=== PATIENT | male | born 1970 | race Caucasian/White ===

== ENCOUNTER 2018-02-03 07:30 | Inpatient (IN) | payer BC, OTHER ==
[2018-02-03 11:36] VITALS: RESP 18
[2018-02-03] MEDS ORDERED: LIDOCAINE 2% INJ 20 MG/ML SQ ONE (12:56)
[2018-02-03] MEDS: VERAPAMIL SYRINGE (5 MG/10 ML) IVP ONE ×2 (12:57→13:12)
[2018-02-03] MEDS ORDERED: SODIUM CHLORIDE 0.9% 1,000 ML IV ONE (13:00)
[2018-02-03] MEDS ORDERED: fentaNYL (PF) 50 MCG/ML 2 ML AMP IVP ONE (13:00)
[2018-02-03] MEDS ORDERED: MIDAZOLAM 2 MG/2 ML VIAL IVP ONE (13:00)
[2018-02-03] MEDS ORDERED: IOPAMIDOL-370 50ML BTL INJ ONE (13:11)
[2018-02-03] MEDS ORDERED: IOPAMIDOL-370 125ML BTL INJ ONE (13:11)
[2018-02-03] MEDS ORDERED: RX INFO: IV CONTRAST WAS GIVEN 1 EACH MISC MISCELLANE PRN (13:21)
[2018-02-03] MEDS ORDERED: SODIUM CHLORIDE 0.9% 1,000 ML IV SCH (13:30)
--- NOTE | 2018-02-03 14:55 | P.HPIM ---
History of Present Illness H&P Date: 02/03/18 Chief Complaint: TROPONEMIA This is a 47 years old male with no significant past medical history of tobacco abuse. Patient of Dr. Vasquez presents to the hospital on to [facility] with generalized weakness and nausea patient will fishing in the bone. Had pain and numbness both arm from elbow to his and associated with nausea and emesis that lasted for 2 hours. Initial troponin was negative with the increase in troponin to 4 this morning. Chest X ray was negative. Initial EKG suggested sinus rhythm with minimal ST depression in lead 2 [address] elevation in lead V1. Patient denied any chest pain or dyspnea. Patient was heparinized overnight given a dose of aspirin 325 mg Was transferred to [facility] for cardiac catheterization which did not show any sinopulmonary artery disease. Review of Systems Constitutional: Denies chills, Denies fever, Denies lethargy, Denies malaise, Denies poor appetite, Denies weakness, Denies weight loss Eyes: denies decreased vision, denies diplopia, denies discharge, denies pain Ears: deny: decreased hearing Ears, nose, mouth and throat: Denies dental pain, Denies headache, Denies nasal discharge, Denies nose pain Cardiovascular: Denies chest pain, Denies decreased exercise tolerance, Denies edema, Denies high blood pressure, Denies irregular heart beat, Denies palpitations, Denies paroxysmal nocturnal dyspnea, Denies rapid heart beat, Denies shortness of breath Respiratory: Denies congestion, Denies cough, Denies cough with sputum, Denies dyspnea, Denies home oxygen, Denies wheezing, endorses recent cold and cough 2 weeks ago Gastrointestinal: Denies abdominal pain, Denies change in bowel habits, Denies coffee ground emesis, Denies early satiety, Denies excessive gas, Denies heartburn, Denies hematemesis, Denies hematochezia, Denies loss of appetite, Denies nausea, Denies vomiting Genitourinary: Denies dysuria, Denies flank pain, Denies kidney stones, Denies menorrhagia, Denies urgency, Denies urinary frequency Musculoskeletal: Denies gait dysfunction, Denies limitation of motion, Denies morning stiffness, Denies muscle cramps Integumentary: Denies rash, Denies wounds, Denies brittle nails, Denies change in hair/nails, Denies darkening of skin Neurological: Denies balance difficulties, Denies change in speech, Denies double vision, Denies gait dysfunction, Denies loss of vision, Denies motor disturbance, endorses numbness in both arms, right arm resolved persistent left arm numbness, Denies paralysis, Denies paresthesias, Denies seizures Psychiatric: Denies anxiety, Denies depression Endocrine: Denies excessive sweating, Denies excessive thirst, Denies high blood sugars, Denies palpitations Hematologic/Lymphatic: Denies easy bruising, Denies lymphadenopathy Medications and Allergies Allergies Allergy/AdvReac Type Severity Reaction Status Date / Time No Known Allergies Allergy Verified 02/03/18 11:08 Physical Exam Vitals: Vital Signs Temp Pulse Resp BP Pulse Ox 02/03/18 14:15 63 18 113/68 97 02/03/18 14:00 64 18 110/64 97 02/03/18 13:45 62 18 109/74 97 02/03/18 13:30 64 18 105/74 97 02/03/18 13:15 98.2 F 64 18 107/72 97 02/03/18 11:35 98.0 F 56 L 18 115/79 97 Intake and Output 02/02/18 02/03/18 02/03/18 22:59 06:59 14:59 Intake Total 200 Balance 200 Intake: IV 200 Other: Weight 90.718 kg - Constitutional General appearance: cooperative, no acute distress, obese - EENT Eyes: anicteric sclerae, PERRLA, normal appearance ENT: hearing grossly normal - Neck Neck: no lymphadenopathy, normal ROM, no other, no rigidity, no stridor, no thyromegaly - Respiratory Respiratory: bilateral: CTA, negative: diminished, dullness, rales, rhonchi - Cardiovascular Rhythm: regular Heart sounds: normal: S1, S2 Abnormal Heart Sounds: no systolic murmur, no diastolic murmur, no rub, no S3 Gallop, no S4 Gallop, no click, no other - Gastrointestinal General gastrointestinal: normal bowel sounds, soft - Integumentary Integumentary: no rash - Neurologic Neurologic: CNII-XII intact - Musculoskeletal Musculoskeletal: strength equal bilaterally, site of catheterization appears normal, normal dictaphone transcriber bilaterally - Psychiatric Psychiatric: A&O x's 3, appropriate affect Thrombosis Risk Factor Assmnt - DVT/VTE Prophylaxis DVT/VTE Prophylaxis: Mechanical Prophylaxis ordered Assessment and Plan Plan: #1 . Troponinemia likely secondary to Non-ST elevation myocardial infarction. Cardiac cath done on 02/03 suggestive of no major coronary artery disease. There was a concern of some occlusion in the septal branch of OM1 which might be responsible for patient's symptoms. Ventriculogram suggestive of EF 40-45%. Patient initiated on aspirin 325 mg, atorvastatin 40 mg, lisinopril 2.5 mg, metoprolol 25 mg twice a day. Vitals per floor. Continue telemetry overnight. We will also get a VQ scan to rule out pulmonary embolism as patient's EKG finding and increase troponinemia could be related to pulmonary embolism #2 nicotine dependence. NicoDerm patch ordered. Patient requests a prescription on discharge. Continue albuterol as needed. Oxygen as needed #3 leukocytosis likely secondary to stress. Chest x-ray was clear #4 GI prophylaxis with Pepcid 20 mg daily #5 DVT prophylaxis with heparin every 8 CODE STATUS full code
[2018-02-03] MEDS ORDERED: ONDANSETRON 4 MG/2 ML VIAL IVP PRN (14:57)
[2018-02-03] MEDS ORDERED: IPRATROPIUM-ALBUTEROL 3 ML NEB INHALATION PRN (14:57)
[2018-02-03] MEDS ORDERED: MORPHINE SULFATE 4 MG/ML SYRINGE IVP PRN (14:57)
[2018-02-03] MEDS ORDERED: ACETAMINOPHEN TAB 325 MG TAB PO PRN (14:57)
--- NOTE | 2018-02-03 16:15 | CC ---
CARDIAC CATHETERIZATION REPORT DATE OF SERVICE: February 03, 2018 PERFORMING PHYSICIAN: Ruel Clay MD, photoengraving finisher. PROCEDURE PERFORMED: 1. Selective right and left coronary angiogram. 2. Left heart catheterization. 3. Left ventriculography. INDICATION: This is a very pleasant 47-year-old gentleman with significant history of smoking, who presented to the emergency room at [facility] complaining of weakness associated with sweating and bilateral arm discomfort. He was brought in for acute non ST elevation myocardial infarction. The cardiac enzymes came in to be abnormal with troponin of about 3. The EKG showed sinus rhythm with mild ST-segment elevation in the septal leads only. In view of that, heart catheterization was recommended. APPROACH: Right radial artery. COMPLICATION: None. LEVEL OF SEDATION: Moderate with sedation length of 18 minutes. PROCEDURE DESCRIPTION: After obtaining an informed consent, the patient was brought to the cardiac laborer/key man. The right radial artery was cannulated using micropuncture technique and a micropuncture wire passed easily. Then I placed a 6-Portuguese sheath in the right radial artery and I gave the patient 2 mg of verapamil IA and 10,000 units of heparin IV. Selective right and left coronary angiogram was performed using JR4 and JL3.5 catheters. Left heart catheterization and left ventriculography was performed using pigtail catheter. The procedure was completed without any complication. SELECTIVE CORONARY ANGIOGRAM: 1. The RCA is a large caliber vessel and it is a dominant vessel. It is angiographically normal. It bifurcates distally into PDA and PLV branches both are angiographically normal. 2. The left main is normal. It bifurcates into the left circumflex and left anterior descending artery. 3. The left circumflex is a large caliber vessel and it is a nondominant vessel. The left circumflex system is angiographically normal. 4. The LAD is angiographically normal. It gives rise into multiple diagonal branches. They are angiographically normal. The LAD also gives rise into a medium size septal science liaison branch which has a tight lesion in its ostium. HEMODYNAMICS: The left ventricular end-diastolic pressure was about 20 mmHg and no gradient was identified across the aortic valve. Left ventriculography was performed in the RAY projection and using a power injection. The left ventricular systolic function is mildly impaired with EF in the range of 40% 45% with global hypokinesia. CONCLUSION: 1. Normal coronary angiogram except for severe disease involving the ostial medium- sized septal science liaison branch. 2. Mildly impaired LV function with an ejection fraction between 40-45%. POSTPROCEDURE MANAGEMENT: 1. Maximize medical treatment. The patient will be started on aspirin and statin, metoprolol, lisinopril, and Aldactone. 2. Possible discharge home in the next 24-48 hours. 3. Echocardiogram as an outpatient to assess for improvement in the LV function. MMBENNETTL / IJN: [id number] /
--- NOTE | 2018-02-03 17:11 | NM ---
EXAMINATION TYPE: NM pul vent and perfuse DATE OF EXAM: 02/03/2018 COMPARISON: NONE HISTORY: Anterior chest pain TECHNIQUE: Utilizing inhalation of 30.6 mCi Tc 99m DTPA aerosol and intravenous injection of 5.17 mC i of Tc 99m MAA, ventilation and perfusion images are acquired post injection in multiple projections . FINDINGS: There are no mismatched defects identified. Apical matched small defects are seen in addition to diff use diminished for uterus or within the upper lungs throughout the entirety of the examination. No cu rrent chest radiograph is available for comparison. IMPRESSION: Exam is suboptimal and limited as there is no current chest radiograph for comparison. Comparison wit h chest radiograph is recommended to evaluate for triple matched defects in the lung apices. Decrease d ventilation within the bilateral upper lungs could relate to ventilatory etiology such as pneumonia , bullous emphysema, or poor inspiration of radiotracer. Currently the exam is low probability for pu lmonary embolus, however again radiographic correlation is suggested.
[2018-02-03] MEDS: SODIUM CHLORIDE 0.9% 1,000 ML IV SCH (18:00)
[2018-02-03] MEDS: HEPARIN SODIUM,PORCINE 5,000 UNIT/ML 1 ML VIAL SQ SCH (21:28)
[2018-02-03] MEDS: METOPROLOL TARTRATE 25 MG TAB PO SCH (21:29)
[2018-02-04] MEDS: SODIUM CHLORIDE 0.9% 1,000 ML IV SCH ×2 (02:14→08:28)
[2018-02-04 04:12] VITALS: TEMP 98.1
[2018-02-04 06:12] LABS: Basophils # (A) 0.1 k/uL (0-0.2); Basophils % (A) 1 %; Eosinophils # (A) 0.3 k/uL (0-0.7); Eosinophils % (A) 3 %; HCT 47.1 % (39.0-53.0); HGB 15.4 gm/dL (13.0-17.5); Lymphocytes # (A) 4.1 k/uL (1.0-4.8); Lymphocytes % (A) 38 %; MCH 30.3 pg (25.0-35.0); MCHC 32.8 g/dL (31.0-37.0); MCV 92.4 fL (80.0-100.0); Mean Platelet Volume 6.9; Monocytes # (A) 0.6 k/uL (0-1.0); Monocytes % (A) 6 %; Neutrophils # (A) 5.5 k/uL (1.3-7.7); Neutrophils % (A) 51 %; Platelet Count 196 k/uL (150-450); RBC 5.09 m/uL (4.30-5.90); RDW 13.2 % (11.5-15.5); WBC 10.8 k/uL (3.8-10.6)
[2018-02-04 06:23] LABS: ALT 36 U/L (21-72); AST 33 U/L (17-59); Alkaline Phosphatase 69 U/L (38-126); Anion Gap 11 mmol/L; Blood Urea Nitrogen 13 mg/dL (9-20); Calcium 9.6 mg/dL (8.4-10.2); Carbon Dioxide 25 mmol/L (22-30); Chloride 108 mmol/L (98-107); Glucose 112 mg/dL (74-99); Potassium 4.6 mmol/L (3.5-5.1); Sodium 144 mmol/L (137-145); Total Bilirubin 0.2 mg/dL (0.2-1.3); Total Protein 6.5 g/dL (6.3-8.2)
[2018-02-04] MEDS: FAMOTIDINE 20 MG TAB PO SCH ×2 (08:27→08:36)
[2018-02-04] MEDS: HEPARIN SODIUM,PORCINE 5,000 UNIT/ML 1 ML VIAL SQ SCH (08:27)
[2018-02-04] MEDS: METOPROLOL TARTRATE 25 MG TAB PO SCH (08:27)
[2018-02-04] MEDS ORDERED: NICOTINE 21MG/24HR PATCH TRANSDERM SCH (09:00)
[2018-02-04] MEDS ORDERED: ASPIRIN 325 MG TAB PO SCH (09:00)
[2018-02-04] MEDS ORDERED: LISINOPRIL 2.5 MG TAB PO SCH (09:00)
[2018-02-04] MEDS ORDERED: SPIRONOLACTONE 25 MG TAB PO SCH (09:00)
[2018-02-04] MEDS ORDERED: ATORVASTATIN 40 MG TAB PO SCH (09:00)
[2018-02-04 10:52] VITALS: BP 109/58; PULSE 53
[2018-02-04] MEDS ORDERED: MORPHINE ORAL SOLN 10 MG/5 ML CUP PO PRN (11:00)
--- NOTE | 2018-02-04 12:16 | XR ---
EXAMINATION TYPE: XR chest 1V DATE OF EXAM: 02/04/2018 COMPARISON: 05/03/2014 HISTORY: Previous heart attack, VQ scan TECHNIQUE: Single frontal view of the chest is obtained. FINDINGS: Heart is mildly prominent. No consolidation or pneumothorax. No overt failure. Hypertrophi c change of the right AC joint. No sizable pleural effusion. IMPRESSION: Mild cardiomegaly
--- NOTE | 2018-02-04 14:40 | P.DS ---
Providers Date of admission: 02/03/18 10:52 Expected date of discharge: 02/04/18 Attending physician: Yael Bynum MD Consults: 02/04/18 11:51 Consult Physician Routine Consulting Provider: Arpan Lee Consult Reason/Comments: cardiac catheterization Do you want consulting provider notified?: Already Contacted Primary care physician: Jim[facility] Course: This is a 47 years old male with no significant past medical history of tobacco abuse. Patient of Dr. Vasquez presents to the hospital on to [facility] with generalized weakness and nausea patient will fishing in the bone. Had pain and numbness both arm from elbow to his and associated with nausea and emesis that lasted for 2 hours. Initial troponin was negative with the increase in troponin to 4 this morning. Chest X ray was negative. Initial EKG suggested sinus rhythm with minimal ST depression in lead 2 and lead [address] elevation in lead V1. Patient denied any chest pain or dyspnea. Patient was heparinized overnight given a dose of aspirin 325 mg Was transferred to [facility] for cardiac catheterization showed normal coronary arteries except for severe disease involving the ostial medium sized septal gym supervisor branch. EF 40-45%. Plan to optimize medical treatment. 02/04: V/Q scan is some optimal. Recommend evaluate with chest x-ray. Decrease ventilation within the bilateral upper lungs could relate to ventilatory etiology such as pneumonia, bolus emphysema or poor inspiration of radiotracer. Low probability for pulmonary embolism but radiographic correlation is suggested. Heart rate is running in the 50s and 60s. Discussed with patient that he will need follow-up for COPD including PFTs which can be arranged by Dr. Arboleda. Patient plans to quit smoking at this time. Repeat chest x-ray was done that reveals mild cardiomegaly. Patient has been afebrile. Blood pressure is stable. Pulse ox 95-97% on room air. She has been cleared by cardiology for discharge home. Discharge diagnoses: #1. Non-ST elevation myocardial infarction status post cardiac cath suggestive of no major coronary artery disease but with concern of some occlusion in the septal branch of OM1 which might be responsible for patient's symptoms. #2 nicotine dependence. #3 leukocytosis likely secondary to stress. Discharge plan: Home Impression and plan of care have been directed as dictated by the signing physician. Evelin Schilling nurse practitioner acting as scribe for signing physician. Patient Condition at Discharge: Good Plan - Discharge Summary New Discharge Prescriptions: New Aspirin EC [Ecotrin Low Dose] 81 mg PO DAILY #30 tablet. Atorvastatin [Lipitor] 40 mg PO HS #30 tab Lisinopril [Zestril] 2.5 mg PO DAILY #30 tab Metoprolol Tartrate [Lopressor] 25 mg PO BID #60 tab Nicotine 21Mg/24Hr Patch [Habitrol] 1 patch TRANSDERM DAILY #30 patch Spironolactone [Aldactone] 12.5 mg PO DAILY #30 tab Discharge Medication List Aspirin EC [Ecotrin Low Dose] 81 mg PO DAILY #30 tablet. 02/04/18 [Rx] Atorvastatin [Lipitor] 40 mg PO HS #30 tab 02/04/18 [Rx] Lisinopril [Zestril] 2.5 mg PO DAILY #30 tab 02/04/18 [Rx] Metoprolol Tartrate [Lopressor] 25 mg PO BID #60 tab 02/04/18 [Rx] Nicotine 21Mg/24Hr Patch [Habitrol] 1 patch TRANSDERM DAILY #30 patch 02/04/18 [ Rx] Spironolactone [Aldactone] 12.5 mg PO DAILY #30 tab 02/04/18 [Rx] Follow up Appointment(s)/Referral(s): Jimmie Arboleda MD [Primary Care Provider] - 1 Week (Please call to make appointment) Ruel Clay MD [STAFF PHYSICIAN] - 02/10/18 1:45 pm (Wednesday) Patient Instructions/Handouts: *Surgery [facility] - After Heart Catheterization - [place] Instructions, Left Heart Catheterization (DC) Discharge Disposition: HOME SELF-CARE
--- NOTE | 2018-02-06 16:03 | P.PN ---
Subjective Progress Note Date: 02/06/18 This is a 47-year-old gentleman who was admitted to [facility]. He was found to have a hiatal troponins and suspected non-STEMI. Patient had a cardiac catheterization by Dr. Doe. He is not found to have a significant obstructive disease. He was felt to have cardiomyopathy. Ejection fraction about 40-45%. Patient is being discharged home in stable condition. His groin is soft without any hematoma. Follow-up with Dr. Doe Objective - Vital Signs Vital signs: Vital Signs Temp 98.1 F 02/04/18 04:05 Pulse 53 L 02/04/18 08:25 Resp 18 02/04/18 08:25 BP 109/58 02/04/18 08:25 Pulse Ox 95 02/04/18 08:25 - Exam GENERAL EXAM: Patient is alert and oriented and doesn't appear to be in any acute distress HEENT: Normocephalic. Normal reaction of pupils, equal size, normal range of extraocular motion. No erythema or exudates in the throat. NECK: No masses, no nuchal rigidity. CHEST: No chest wall deformity. LUNGS: Equal air entry with no crackles or wheeze. HEART: S1 and S2 normal with no audible mumurs or gallops. Regular rhythm, femorals equal on both sides.. ABDOMEN: No hepatosplenomegaly, normal bowel sounds, no guarding or rigidity. SKIN: No rashes CENTRAL NERVOUS SYSTEM: No focal deficits. EXTREMITIES: No cyanosis, clubbing or edema. Puncture site: Dry and soft - Labs CBC & Chem 7: 02/04/18 05:58 02/04/18 05:58 Assessment and Plan (1) Cardiomyopathy Status: Acute Code(s): I42.9 - CARDIOMYOPATHY, UNSPECIFIED SNOMED Code(s): 10691112 (2) Elevated troponin Status: Acute Code(s): R74.8 - ABNORMAL LEVELS OF OTHER SERUM ENZYMES SNOMED Code(s): 851886895 Plan: Patient is stable and is being discharged home on current medical therapy. Follow up with Dr. Doe
== END 2018-02-04 13:05 | disposition home or self-care (01) | DRG 281 ==
LOC: 6SEL 10:52 → UNDOADMIN 13:43 → 6SEL 13:43
PROVIDERS: ADMIT Internal Medicine; ATTEND Internal Medicine
PROC: B2111ZZ Fluoroscopy of Multiple Coronary Arteries using Low Osmolar Contrast (ICD-10-PCS; 2018-02-03)
PROC: B2151ZZ Fluoroscopy of Left Heart using Low Osmolar Contrast (ICD-10-PCS; 2018-02-03)
PROC: 4A023N7 Measurement of Cardiac Sampling and Pressure, Left Heart, Percutaneous Approach (ICD-10-PCS; principal; 2018-02-03 12:20)
DX: I21.4 Non-ST elevation (NSTEMI) myocardial infarction (principal); I42.9 Cardiomyopathy, unspecified; E66.9 Obesity, unspecified; Z68.31 Body mass index [BMI] 31.0-31.9, adult; D72.829 Elevated white blood cell count, unspecified; F17.210 Nicotine dependence, cigarettes, uncomplicated; I51.7 Cardiomegaly; I25.10 Atherosclerotic heart disease of native coronary artery without angina pectoris
CPT/HCPCS: 71045; 78582; 80053; 85025; 85379; 93458

== ENCOUNTER → 2022-04-09 | Outpatient (CLI) | payer BC ==
[2022-04-09 09:28] VITALS: BP 126/79; PULSE 78; RESP 18; TEMP 97.8
--- NOTE | 2022-04-09 09:39 | P.PAINPG ---
PQRS Measure Charge Sheet Comment: HISTORY OF PRESENT ILLNESS: 52 yr old male as a referral from Dr. Rivas presents today with severe and chronic LBP secondary to DDD, spinal stenosis and disc bulges for evaluation. Pt states his LBP is currently at 6/10 in intensity, constant, localized lower back w radiation to BLEs. Pain level is 6/10 in intensity since May 2021. Pain is provoked with bending & twisting. Palliated w medications (Motrin), topicals, massage therapy last in November 2021, home guided stretches at home, chiropractic treatments in Jun 2021 which provoked pain, heat, ice, repositioning and rest. PMH: Cardiomyopathy, HTN, Hyperlipidemia, NSTEMI PSH: Cardiac SH: Hx of tobacco use, No ETOH abuse, No illicit drug use FH: Non contributory All: NKDA Meds: See list REVIEW OF ORGAN SYSTEMS: CONSTITUTIONAL: No fevers or chills. No recent weight loss. NEUROLOGICAL: + numbness and tingling along the distal extremities. No seizure disorders or headaches. MUSCULOSKELETAL: + pain PSYCHIATRIC: Denies current depression or suicidal thoughts. Physical Examinations : Constitutional : Cooperative , not in acute distress . Neurologic : Cranial nerve II to XII intact. No focal neurological deficits. Psychiatric : alert & oriented x 3. Matching mood & appropriate affect. Judgment & insight intact. Musculoskeletal : Cervical Spine Motor strength in the deltoid and biceps: Normal right side. Normal Left side Motor strength biceps and the wrist extensors: Normal right side . Normal left side Motor strength in the triceps muscle: Normal right side. Normal left side Deep tendon reflexes: Normal at the biceps. Normal at Brachioradialis. Normal at triceps Vertebral body tenderness to deep palpation over Cervical facet loading test: positive bilaterally Spurling test: positive bilaterally Neck distraction test: positive bilaterally Veronica sign: positive bilaterally Lumbar spine Motor strength lower extremities ,thigh and legs 5/5 Right side , 5/5 Left side Deep tendon reflexes : Normal Knee Jerk. Normal Ankle Jerk Vertebral body tenderness over L4, L5 Lumbar facet Loading Test: positive Right / positive Left Range of motion of the lumbar spine Flexion 30 degrees, extension 10 degrees Straight Leg Raise test: Left/ Right positive at 30 degrees Loni test: positive right / positive left. Severe tenderness over the Sacroiliac joint on the Right / Left sides Gaenslen test: positive bilaterally Seated flexion test: positive bilaterally. Sacral spine : Severe tenderness over the Sacroiliac joint: right side / left side Range of motion: Flexion of the lumbar spine <60 degrees Range of motion: Extension of the lumbar spine <20 degrees Gaenslen's Test positive Santosh's Test positive Loni test: positive right side / left side Thigh Thrust Test Sacral Thrust Test Imaging: MRI without contrast of the lumbar spine from 02/13/22 reviewed Assessment/ Plan : Lumbar stenosis, Lumbar DDD Recommendation of BL TFESI L4-L5. May need a series of injections, up to 3 within a 6 mo period, for optimal pain relief. Risks, benefits of procedure discussed and patient verbalized understanding. Admits to aspirin or anti- coagulant use and denies medical history of diabetes. Protocol for discontinuation/ continuation of medications barbara procedure discussed. All questions answered. I have spent greater than 30 minutes on patient care today. Dr Arnold was available by phone for the evaluation of this patient. The time was used to review the medical records including relevant urine studies and Prescription history (MAPs), review of the available imaging, evaluation and examination of the patient, coordination of care with the medical staff and if applicable referring physicians, as well as creation of the medical record PQRS Narrative: Smoking Status Current every day smoker Home Medications: Ambulatory Orders Aspirin EC [Ecotrin Low Dose] 81 mg PO DAILY #30 tablet. 02/04/18 Atorvastatin [Lipitor] 40 mg PO HS #30 tab 02/04/18 Metoprolol Tartrate [Lopressor] 25 mg PO BID #60 tab 02/04/18 Nicotine 21Mg/24Hr Patch [Habitrol] 1 patch TRANSDERM DAILY #30 patch 02/04/18 Spironolactone [Aldactone] 12.5 mg PO DAILY #30 tab 02/04/18 lisinopriL [Zestril] 2.5 mg PO DAILY #30 tab 02/04/18 amLODIPine [Norvasc] 5 mg PO DAILY 04/09/22 Controlled Substance Measures - Controlled Substance Measures Is patient prescribed a controlled substance at discharge?: Yes When asked, does pt state using other controlled substances?: No If prescribed controlled substance>3 days was MAPS reviewed?: Yes If Rx opioid, was Start Talking consent form obtained?: Yes If opioid is for acute pain is fill amount 7 days or less?: Yes Was information provided regarding opioid addiction?: Yes
== END ==
LOC: PNWHC3 09:00
PROVIDERS: ATTEND Specialist
DX: M48.061 Spinal stenosis, lumbar region without neurogenic claudication (principal); M51.36 Other intervertebral disc degeneration, lumbar region; I10 Essential (primary) hypertension; E78.5 Hyperlipidemia, unspecified; Z88.1 Allergy status to other antibiotic agents; Z88.5 Allergy status to narcotic agent; Z88.8 Allergy status to other drugs, medicaments and biological substances; Z88.2 Allergy status to sulfonamides
CPT/HCPCS: 99202

== ENCOUNTER 2022-05-19 07:52 | Day surgery (SDC) | payer BC ==
[2022-05-19] MEDS ORDERED: LIDOCAINE 1% (10MG/ML) FOR IV START INTRADERMA PRN (08:16)
[2022-05-19] MEDS ORDERED: LACTATED RINGERS 1,000 ML IV SCH (08:16)
[2022-05-19 08:26] VITALS: RESP 18; TEMP 97.2
[2022-05-19] MEDS ORDERED: MIDAZOLAM 2 MG/2 ML VIAL ONE (08:45)
[2022-05-19] MEDS ORDERED: fentaNYL (PF) 50 MCG/ML 2 ML AMP ONE (08:45)
[2022-05-19] MEDS ORDERED: IOPAMIDOL M200 10 ML VIAL ONE (08:45)
[2022-05-19] MEDS ORDERED: methylPREDNISolone ACETATE 80 MG/ML 1 ML VIAL ONE (08:45)
--- NOTE | 2022-05-19 09:06 | P.PCN ---
Date of Procedure: 05/19/22 Procedure(s) Performed: PREOPERATIVE DIAGNOSIS: 1-Lumbar radiculopathy . 2-lumbar degenerative disc disease. 3-lumbar spinal stenosis POSTOPERATIVE DIAGNOSIS: Same as preoperative diagnoses. PROCEDURE 1. Transforaminal epidural steroid injection under fluoroscopic guidance at the Bilateral L4-5 level. (Fluoroscopy images stored on file in the radiology Department ) 2. Lumbar epidurogram . ANESTHESIA: Local with 1% lidocaine 3 ml , moderate sedation with intravenous Versed 2 mg and fentanyle 100 micrograms. Sedation start time : 0 847 . Sedation. stop time : 0902 . EBL: Minimal PROCEDURE INDICATION: The patient with low back pain and radiculopathy symptoms unresponsive to conservative treatment. PROCEDURE DESCRIPTION / TECHNIQUE: The patient was seen and identified in the preoperative area. Risks, benefits, complications, and alternatives were discussed with the patient. The patient agreed to proceed with the procedure and signed the consent. IV was started, and vital signs were stable. Patient was taken to the OR and time out was completed. The patient was placed in the prone position on procedure table and a pillow was placed under the abdomen to reduce lumbar lordosis. The lumbosacral area was prepped and draped in the usual sterile fashion. Critical pause was taken. Vital signs were closely monitored during the procedure. Conscious sedation was used during the procedure to decrease patient s anxiety. Using oblique fluoroscopy, the chin of the `Nicky dog at right L4-5 level was identified, and the skin and deeper tissues just below was localized with 1% lidocaine. Subsequently, a 22-gauge 3.5-inch spinal needle was advanced under a tunneled view fluoroscopic guidance just underneath the chin of the `Nicky dog at the right L4-5 Under lateral fluoroscopy, the needle was then advanced to the posterior border of the interforaminal space. After negative aspiration of CSF and blood and with no paresthesias, 1 mL Isovue 200 contrast dye was injected excellent epidurogram and outlining of the nerve root Subsequently, 3 mL of block solution containing 40 mg Depo-Medrol and 2 mL of 0.9% normal saline PF was injected. Needle was removed and the same procedure was repeated at the left L4-5 level . At the end of the procedure, skin was cleansed, and bandages were applied. COMPLICATIONS:none DISPOSITION / PLANS: The patient was placed in a supine position and transferred to the recovery area in a stable condition for observation. There was no evidence of lower extremity motor or sensory deficit after the procedure. Patient was discharged from the recovery room after meeting discharge criteria. Home discharge instructions were given to the patient by the staff. The patient was reexamined prior to discharge.
[2022-05-19] MEDS ORDERED: IV FLUID CONTINUATION 1,000 ML IV ONE (09:07)
[2022-05-19 09:27] VITALS: BP 122/82; PULSE 74
--- NOTE | 2022-05-19 09:30 | FL ---
EXAMINATION TYPE: FL guided pain mgmt statistic DATE OF EXAM: 05/19/2022 HISTORY: Fluoroscopy time 20 seconds of fluoroscopy provided. IMPRESSION: 1. Fluoroscopy time.
== END 2022-05-19 09:40 | disposition home or self-care (01) ==
LOC: ORPAIN 07:52
PROVIDERS: ATTEND Specialist
DX: M51.16 Intervertebral disc disorders with radiculopathy, lumbar region (principal); M48.061 Spinal stenosis, lumbar region without neurogenic claudication
CPT/HCPCS: 64483; J2250; J1040; J3010; Q9966; 99152

== ENCOUNTER → 2022-06-03 | Outpatient (CLI) | payer BC ==
[2022-06-03 10:00] VITALS: BP 128/80; PULSE 71; RESP 18; TEMP 98.1
--- NOTE | 2022-06-03 14:37 | P.PAINPG ---
PQRS Measure Charge Sheet Comment: A 52 yr old male with a history of severe and chronic low back pain secondary to lumbar degenerative disc diseases and lumbar spondylosis with facet arthropathy without myelopathy presents today for evaluation s/p BL TFESI L4-5. Pt states he experienced 10% pain relief x 2 wks s/p procedure. Pain level is currently at 7/10 in intensity, constant, localized in lower lumbar spine, dull/ achy/ sharp/ shooting towards L/R of mindline w radiation towards the BLEs. Pain is provoked by standing/ walking for periods of 20 min or more. Pain is alleviated with massage therapy weekly in November 2021 which was ineffective, chiropractic treatments Sep-Nov 2021 which was ineffective, hot baths, OTC pain patches are ineffective, repositioning and rest. Interventional pain procedures completed include BL TFESI L4-5 x1. Patient is currently on DENIES Patient denies any side effects of the medication(s), denies excessive drowsiness or sleepiness, denies suicidal ideation and reports that the current pain medication is helping to control the pain and improve activities of daily living. Patient denies any motor or sensory deficits. Patient denies any fever or night sweats, denies any change in the bowel movements or urination. Physical Examination: -Constitutional: Cooperative. Not in acute distress . - Neurologic: Cranial nerve II to XII intact. No focal neurological deficits. - Psychatric: Alert & oriented x 3. Matching mood & appropriate affect. Judgment and insight intact. - Musculoskeletal: Cervical spine: Muscle bulk/ tone/ strength in the bilateral upper extremities normal Vertebral body tenderness to palpation over Spurling test positive Distraction test positive Facet loading test positive Thoracic spine Muscle bulk / tone/ strength in the bilateral paraspinal muscles normal Vertebral body tender to palpation over Facet loading test positive Lumbar spine: Motor bulk/ tone/ strength lower extremities , thigh and legs : 5/5 Deep tendon reflexes : Normal Knee Jerk. Normal Ankle Jerk . Vertebral body tenderness to palpation over Lumbar Facet Loading Test positive w jump reflex over BL L4-L5, L5-S1 Straight Leg Raise: positive at 30 degrees right side/ left side Gaenslen's Test positive Sacral spine : Severe tenderness over the Sacroiliac joint: right side / left side Range of motion: Flexion of the lumbar spine <60 degrees Range of motion: Extension of the lumbar spine <20 degrees Gaenslen's Test positive Santosh's Test positive Loni test: positive right side / left side Thigh Thrust Test Sacral Thrust Test Assessment and plan: Chronic low back pain secondary to lumbar degenerative disc disease , lumbar spondylosis with facet arthropathy without myelopathy Recommendation of BL MBB L4-L5, L5-S1 #1. May need a series of injections, up until RFA, for optimal pain relief. Risks, benefits of procedure discussed and pt verbalized understanding. Denies anticoagulant use or medical history of diabetes. Chronic and current use of high-risk medication (Opioids). The patient was counseled about risk of opioid use, psychological risk associated with opioids and was orally counseled to not overuse , divert or sell medications. Pt is to store medication in a safe location. The patient is counseled against driving while using narcotic medications and also not to use alcohol or any illicit recreational drugs. Patient verbalized understanding that the lack of compliance will result in failure to renew narcotic prescription(s) as well as possible discharge from the clinic Diagnoses, prognosis and treatment options including but not limited to physical therapy, surgical interventions, interventional therapies and medication management including narcotics and adjuvant medication were discussed. All patient questions answered MAPS reviewed and it was appropriate. Prescription for Neurontin 300mg 1 tab PO BID x 7 days, then 1 tab PO TID thereafter #83 I have spent less than 30 minutes on patient care today. Dr Arnold was available by phone for the evaluation of this patient. The time was used to review the medical records including relevant urine studies and Prescription history (MAPs), review of the available imaging, evaluation and examination of the patient, coordination of care with the medical staff and if applicable referring physicians, as well as creation of the medical record - Pain Location Bilateral Lower Back Non-Pharmacological Interventions: Chiropractic Treatment, Heat, Massage, Stretching Pharmacological Interventions: Epidural PQRS Narrative: Smoking Status Current every day smoker Hx Alcohol Use (MH) No Home Medications: Ambulatory Orders Aspirin EC [Ecotrin Low Dose] 81 mg PO DAILY #30 tablet. 02/04/18 Atorvastatin [Lipitor] 40 mg PO HS #30 tab 02/04/18 lisinopriL [Zestril] 2.5 mg PO DAILY #30 tab 02/04/18 Acetaminophen-Codeine 300-30mg [Tylenol w/codeine #3] 1 tab PO Q4H PRN 3 Days #18 tablet 04/09/22 amLODIPine [Norvasc] 5 mg PO DAILY 04/09/22 Controlled Substance Measures - Controlled Substance Measures Is patient prescribed a controlled substance at discharge?: Yes When asked, does pt state using other controlled substances?: No If prescribed controlled substance>3 days was MAPS reviewed?: Yes If Rx opioid, was Start Talking consent form obtained?: Yes Was information provided regarding opioid addiction?: Yes
== END ==
LOC: PNWHC3 09:28
PROVIDERS: ATTEND Specialist
DX: M51.36 Other intervertebral disc degeneration, lumbar region (principal); M47.816 Spondylosis without myelopathy or radiculopathy, lumbar region; G89.29 Other chronic pain; Z79.891 Long term (current) use of opiate analgesic; F17.200 Nicotine dependence, unspecified, uncomplicated
CPT/HCPCS: 99211

== ENCOUNTER 2022-07-03 08:58 | Day surgery (SDC) | payer BC ==
[~2022-07-03 08:58] MED LIST: LACTATED RINGERS 1,000 ML IV SCH
[2022-07-03 09:42] VITALS: TEMP 97.9
--- NOTE | 2022-07-03 09:57 | P.PCN ---
Date of Procedure: 07/03/22 Description of Procedure: Procedure: BILATERAL L4-5, L5-S1 Diagnosis: Lumbar spondylosis without myelopathy ANESTHESIA: Per anesthesia records Imaging: Fluoroscopy was used, images where saved to the medical record The patient was seen and examined in the [facility]. Procedure risks and benefits were fully reviewed with the patient. The patient understands this is diagnostic if local only is used, as will be the case today. The goal of the procedure is to inject medication onto the medial branch or small nerves that innervate the facet joints. In this way, we can hopefully identify which of these joints, if any, may be contributing to their pain. Informed consent for procedure was obtained. The patient was taken into the office fluoroscopy procedure room and placed prone on the table. A pillow was placed under the abdomen to reduce lumbar lordosis. Vital signs were closely monitored during the procedure. The skin over the area was prepped with Betadine X 3 and draped in usual sterile manner. Sterile technique was observed throughout procedure. Under biplanar fluoroscopic guidance, the target injection area of the L4, L5, Sacral Ala were targeted. A 25 gauge 3 1/2 inch spinal needle was then placed at the most medial and superior aspect of the transverse process near the "eye of the Keith dog". Aspiration for blood was negative. 1 cc of 0.5% Ropivacaine was injected into the targeted areas separately. [place] were withdrawn intact. No complications were noted during the procedure. The patient tolerated the procedure well. The patient was placed in supine position and transferred to the recovery area for observation and remained stable until discharged home. Home discharge instructions were given to the patient by the staff. The patient will schedule a follow up as directed.
[2022-07-03] MEDS ORDERED: MIDAZOLAM 2 MG/2 ML VIAL ONE (10:05)
[2022-07-03] MEDS ORDERED: ROPIVACAINE 5 MG/ML 20 ML AMPULE ONE (10:05)
[2022-07-03] MEDS ORDERED: IV FLUID CONTINUATION 900 ML IV ONE (10:22)
[2022-07-03 10:39] VITALS: BP 107/72; PULSE 70; RESP 18
--- NOTE | 2022-07-03 12:11 | FL ---
Fluoroscopy HISTORY: Pain 6 seconds fluoroscopy time supplied to the referring clinician. 6 intraoperative C-arm images docume nt the procedure. See dictated report from anesthesia.
== END 2022-07-03 11:21 | disposition home or self-care (01) ==
LOC: ORPAIN 08:58
PROVIDERS: ATTEND Hospitalist
DX: M47.16 Other spondylosis with myelopathy, lumbar region (principal); I10 Essential (primary) hypertension; I25.2 Old myocardial infarction; F17.210 Nicotine dependence, cigarettes, uncomplicated; Z79.82 Long term (current) use of aspirin; Z79.899 Other long term (current) drug therapy
CPT/HCPCS: 64493; 64494; J2250; J2795

== ENCOUNTER → 2022-07-29 | Outpatient (CLI) | payer BC ==
[2022-07-29 09:49] VITALS: BP 135/85; PULSE 78; RESP 18
--- NOTE | 2022-07-29 10:37 | P.PAINPG ---
PQRS Measure Charge Sheet Comment: A 52 yr old male with a history of severe and chronic low back pain secondary to lumbar degenerative disc diseases and lumbar spondylosis with facet arthropathy without myelopathy presents today for evaluation s/p BL MBB L3-L5 and medication refills. 0% pain relief s/p procedure. Pain level is currently at 8/10 in intensity, constant, localized in the lower lumbar spine, achy in character w shooting towards the BLEs. Pain is provoked by standing/ walking for periods of 15 min or more. Pain is alleviated with medications (Neurontin), PT to start this mo, chiropractic treatments worsened pain, home exercises as tolerated, hot baths, meds (Neurontin, Tyl, Ibu), repositioning and rest. Interventional pain procedures completed include BL MBB L3-L5 x1 Patient is currently on Neurontin 300mg #90 Patient denies any side effects of the medication(s), denies excessive drowsiness or sleepiness, denies suicidal ideation and reports that the current pain medication is helping to control the pain and improve activities of daily living. Patient denies any motor or sensory deficits. Patient denies any fever or night sweats, denies any change in the bowel movements or urination. Physical Examination: -Constitutional: Cooperative. Not in acute distress . - Neurologic: Cranial nerve II to XII intact. No focal neurological deficits. - Psychatric: Alert & oriented x 3. Matching mood & appropriate affect. Judgment and insight intact. - Musculoskeletal: Cervical spine: Muscle bulk/ tone/ strength in the bilateral upper extremities normal Vertebral body tenderness to palpation over Spurling test positive Distraction test positive Facet loading test positive Thoracic spine Muscle bulk / tone/ strength in the bilateral paraspinal muscles normal Vertebral body tender to palpation over Facet loading test positive Lumbar spine: Motor bulk/ tone/ strength lower extremities , thigh and legs : 5/5 Deep tendon reflexes : Normal Knee Jerk. Normal Ankle Jerk . Vertebral body tenderness to palpation over L5 Lumbar Facet Loading Test positive Straight Leg Raise: positive at 30 degrees right side/ left side Gaenslen's Test positive Sacral spine : Severe tenderness over the Sacroiliac joint: right side / left side Range of motion: Flexion of the lumbar spine <60 degrees Range of motion: Extension of the lumbar spine <20 degrees Gaenslen's Test positive Santosh's Test positive Loni test: positive right side / left side Thigh Thrust Test Sacral Thrust Test Assessment and plan: Chronic low back pain secondary to lumbar degenerative disc disease , lumbar spondylosis with facet arthropathy without myelopathy Pt stated he will complete PT then follow up w his orthopedic surgeon to explore additional treatment options if needed. Chronic and current use of high-risk medication (Opioids). The patient was counseled about risk of opioid use, psychological risk a ssociated with opioids and was orally counseled to not overuse , divert or sell medications. Pt is to store medication in a safe location. The patient is counseled against driving while using narcotic medications and also not to use alcohol or any illicit recreational drugs. Patient verbalized understanding that the lack of compliance will result in failure to renew narcotic prescription(s) as well as possible discharge from the clinic Diagnoses, prognosis and treatment options including but not limited to physical therapy, surgical interventions, interventional therapies and medication management including narcotics and adjuvant medication were discussed. All patient questions answered MAPS reviewed and it was appropriate. Prescription refill for Neurontin 300mg #90 w 2 RF I have spent less than 30 minutes on patient care today. Dr Arnold was available by phone for the evaluation of this patient. The time was used to review the medical records including relevant urine studies and Prescription history (MAPs), review of the available imaging, evaluation and examination of the patient, coordination of care with the medical staff and if applicable referring physicians, as well as creation of the medical record - Pain Location Lower Back Non-Pharmacological Interventions: Heat, Home Exercise, Inactivity, Position/Reposition, Sitting, Stretching Pharmacological Interventions: Block, Epidural, Scheduled Medication PQRS Narrative: Smoking Status Current every day smoker Hx Alcohol Use (MH) No Home Medications: Ambulatory Orders Aspirin EC [Ecotrin Low Dose] 81 mg PO DAILY #30 tablet. 02/04/18 Atorvastatin [Lipitor] 40 mg PO HS #30 tab 02/04/18 lisinopriL [Zestril] 2.5 mg PO DAILY #30 tab 02/04/18 amLODIPine [Norvasc] 5 mg PO DAILY 04/09/22 Gabapentin [Neurontin] 300 mg PO TID 30 Days #90 cap 07/29/22 Controlled Substance Measures - Controlled Substance Measures Is patient prescribed a controlled substance at discharge?: Yes When asked, does pt state using other controlled substances?: No If prescribed controlled substance>3 days was MAPS reviewed?: Yes If Rx opioid, was Start Talking consent form obtained?: Yes Was information provided regarding opioid addiction?: Yes
== END ==
LOC: PNWHC3 09:21
PROVIDERS: ATTEND Specialist
DX: G89.29 Other chronic pain (principal); M51.36 Other intervertebral disc degeneration, lumbar region; M47.816 Spondylosis without myelopathy or radiculopathy, lumbar region; Z91.09 Other allergy status, other than to drugs and biological substances; F17.200 Nicotine dependence, unspecified, uncomplicated
CPT/HCPCS: 99211

== ENCOUNTER 2022-08-17 18:09 | Emergency (ER) | payer BC ==
[2022-08-17 18:26] VITALS: TEMP 98
--- NOTE | 2022-08-17 19:09 | XR ---
EXAMINATION TYPE: XR Hip LT and AP Pelvis DATE OF EXAM: 08/17/2022 6:52 PM INDICATION: Patient age:Male; 52 years old; Reason for study: fall down 8 stairs left hip pain femur pain; PHH. COMPARISON: None. TECHNIQUE: The left hip was examined in the frontal and lateral projections and a AP pelvis. FINDINGS: No evidence for acute process, joint dislocation or significant soft tissue swelling. Mild osteophyte formation of the left acetabulum superiorly. IMPRESSION: 1. No acute process. 2. Mild left hip osteoarthrosis.
[2022-08-17] MEDS ORDERED: ORPHENADRINE 30 MG/ML 2 ML VIAL IM STA (19:52)
[2022-08-17] MEDS ORDERED: KETOROLAC 15 MG/ML 1 ML VIAL IM STA (19:53)
[2022-08-17] MEDS ORDERED: MORPHINE SULFATE 4 MG/ML SYRINGE IM STA (19:53)
--- NOTE | 2022-08-17 19:58 | ED ---
Lower Extremity Injury HPI - General Chief Complaint: Extremity Injury, Lower Stated Complaint: Hip Injury Time Seen by Provider: 08/17/22 19:41 Source: patient, RN notes reviewed Mode of arrival: wheelchair Limitations: no limitations - History of Present Illness Initial Comments: This is a pleasant 52-year-old male who presents complaining of left leg pain. Patient states he fell onto his left hip. Patient states she's had problems with lumbar radiculopathy going on for years. States that he slipped on some steps and landed on his left hip. He did not hit his head or neck. Patient states that this has exacerbated his chronic pain. Patient only taking gabapentin at home. Denying any problems with urination or bowel movements. Is able to ambulate with increased pain. Pain is sharp and shooting in nature. Somewhat to be at bedrest. Does radiate from the hip down the left leg which the patient has a strange before with his radiculopathy. No headache, no fever or chills, no changes in vision or hearing, no sore throat or difficulty with speech, no neck pain, no chest pain or shortness of breath, no abdominal pain, no nausea or vomiting, no changes in urination or bowel movements, no numbness or tingling, no skin rashes or lesions. Past medical, surgical, social, and family history reviewed. MD Complaint: hip injury, leg injury - Related Data Home Medications Medication Instructions Recorded Confirmed amLODIPine [Norvasc] 5 mg PO DAILY 04/09/22 07/29/22 Previous Rx's Medication Instructions Recorded Aspirin EC [Ecotrin Low Dose] 81 mg PO DAILY #30 tablet. 02/04/18 Atorvastatin [Lipitor] 40 mg PO HS #30 tab 02/04/18 lisinopriL [Zestril] 2.5 mg PO DAILY #30 tab 02/04/18 Gabapentin [Neurontin] 300 mg PO TID 30 Days #90 cap 07/29/22 Cyclobenzaprine [Flexeril] 10 mg PO TID PRN #20 tab 08/17/22 HYDROcodone/APAP 5-325MG [[place] 5] 1 each PO Q4HR PRN 3 Days #18 tab 08/17/22 Allergies Allergy/AdvReac Type Severity Reaction Status Date / Time soap Allergy Rash/Hives Verified 07/29/22 09:43 Review of Systems ROS Statement: Those systems with pertinent positive or pertinent negative responses have been documented in the HPI. ROS Other: All systems not noted in ROS Statement are negative. 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, ankle surgery, Past Anesthesia/Blood Transfusion Reactions: No Reported Reaction Past Psychological History: No Psychological Hx Reported Smoking Status: Current every day smoker - Past Family History Mother Family Medical History: Diabetes Mellitus, Hypertension Additional Family Medical History / Comment(s): skin ca, hip replacement, back surgery Father Family Medical History: Diabetes Mellitus, Hypertension General Exam - General Exam Comments Initial Comments: Study appear to be ill or toxic, cranial nerves II through XII intact, [place] Coma Scale is 15 Limitations: no limitations General appearance: alert, in distress (Mild) Head exam: Present: atraumatic, normocephalic, normal inspection Eye exam: Present: normal appearance, PERRL, EOMI. Absent: scleral icterus, conjunctival injection, periorbital swelling ENT exam: Present: normal exam, mucous membranes moist. Absent: normal external ear exam Neck exam: Present: normal inspection, full ROM. Absent: tenderness, meningismus, lymphadenopathy Respiratory exam: Present: normal lung sounds bilaterally. Absent: respiratory distress, wheezes, rales, rhonchi, stridor, chest wall tenderness, accessory muscle use, decreased breath sounds, prolonged expiratory Cardiovascular Exam: Present: regular rate, normal rhythm, normal heart sounds. Absent: systolic murmur, diastolic murmur, rubs, gallop, clicks GI/Abdominal exam: Present: soft. Absent: distended, tenderness, guarding, rebound, rigid Rectal exam: Present: normal inspection, normal rectal tone, other (No saddle anesthesia with pinprick to perianal and perineal area.) Extremities exam: Present: normal inspection, tenderness (Patient has some tenderness lateral aspect left hip. No break in skin integrity.), normal capillary refill, other (No tenderness distally or elsewhere. Straight leg raise is negative. No erythema. No evidence of joint effusion. No crepitus.). Absent: pedal edema, joint swelling, calf tenderness Left Hip exam: Present: normal inspection, full ROM, tenderness (Mild left lateral hip tenderness). Absent: swelling, abrasion, laceration, ecchymosis, deformity, crepitus, dislocation, erythema, external rotation, internal rotation, shortening, pelvic stability Upper Leg exam: Present: full ROM, tenderness (Mild tenderness lateral aspect of the left thigh). Absent: normal inspection, swelling, abrasion, laceration, ecchymosis, deformity, crepitus, dislocation, erythema Knee exam: Present: normal inspection, full ROM. Absent: tenderness, abrasion, laceration Lower Leg exam: Present: normal inspection. Absent: tenderness, swelling, abrasion, laceration, ecchymosis, deformity, crepitus, erythema Ankle exam: Present: normal inspection, full ROM. Absent: tenderness, swelling Foot/Toe exam: Present: normal inspection, full ROM. Absent: tenderness, swelling, abrasion Neurovascular tendon exam: Present: no vascular compromise, pulse deficit. Absent: abnormal cap refill, motor deficit, sensory deficit, tendon deficit, pallor Gait: antalgic Back exam: Present: normal inspection, full ROM, paraspinal tenderness (Mild left lumbar paraspinal tenderness.). Absent: vertebral tenderness, rash noted Neurological exam: Present: alert, oriented X3, CN II-XII intact, reflexes normal, other (Straight leg raise negative, +5 out of 5 great toe extensor strength). Absent: motor sensory deficit Psychiatric exam: Present: normal affect, normal mood Skin exam: Present: warm, dry, intact, normal color. Absent: rash Course Vital Signs 08/17/22 18:23 Temperature 98 F Pulse Rate 86 Respiratory 16 Rate Blood Pressure 133/80 O2 Sat by Pulse 98 Oximetry - Reevaluation(s) Reevaluation #1: 08/17/22 22:20 Medical record is reviewed Symptoms are improved pain chin Patient is informed of results and questions answered Patient in no distress Reevaluation #2: 08/17/22 23:20 Patient stable for discharge. Patient was improved pain chin. I did give the patient the option of waiting until the neurosurgeon calls back. However the patient wants to go home. Patient was sent home with his daughter and spouse. - Consultations Consultation #1: Call placed for on-call orthopedics and on-call neurosurgery Medical Decision Making - Medical Decision Making Cephalgia consistent with left hip contusion and flareup of chronic lumbar radiculopathy. No changes in balance urination. No symptoms of cauda equina syndrome. Patient was told to return to the ER for any signs or symptoms worsen. Told to return immediately if any other problems arise. All questions answered. Treatment plan discussed. Patient in agreement Every effort has been made to ensure accuracy of this dictation. However, due to the limitations of electronic medical records and dictation devices, errors in charting still occur. Patient given crutches. Patient's neurosurgeon had yet to call back. However, there should be nothing to do acutely with a transverse process fracture of L2. We'll discuss with neurosurgery when they call back. Patient wanting to go home. We'll discharge the patient with pain medications. The case was discussed in detail with ED attending physician. Presentation, findings, treatment plan discussed in detail. Supervising Dr. Hunt - Radiology Data Radiology results: report reviewed, image reviewed X-rays of the pelvis and left hip. No dislocation. No fracture. No soft tissue changes. Reviewed and concur with the radiology interpretation. Plain films were interpreted by me. No evidence of acute pathology. I do concur with radiology interpretation. CT scans were interpreted by me as well. Patient does have a hairline fracture left pelvis and left L2 transverse process fracture. Computed tomography scan imaging shows a hairline fracture through the left pelvic bone which is nondisplaced as well as a left L2 transverse process fracture. Hairline fracture to left pelvis at best appreciated on sagittal imaging which is nondisplaced. It extends into the left superior pubic ramus with no evidence of intra-articular extension patient also has multilevel DJD and disc bulging. Disposition Clinical Impression: Fracture of left pelvis, Lumbar transverse process fracture, Contusion of left thigh, initial encounter Disposition: HOME SELF-CARE Instructions (If sedation given, give patient instructions): Transverse Process Fracture (ED), Pelvic Fracture (ED), Crutch Instructions (ED), Lumbar Radiculopathy (ED), Contusion in Adults (ED) Additional Instructions: Call both the orthopedic physician and the neurosurgeon tomorrow morning 8 AM to schedule follow-up appointments. Use the crutches as directed. Apply ice 20 minutes on and off to the injured areas 4 times daily. Follow-up with your regular physician as directed. Return to the ER immediately if any symptoms worsen, new symptoms arise, or any other problems develop. Prescriptions: Cyclobenzaprine [Flexeril] 10 mg PO TID PRN #20 tab PRN Reason: Spasms HYDROcodone/APAP 5-325MG [[place] 5] 1 each PO Q4HR PRN 3 Days #18 tab PRN Reason: Pain Is patient prescribed a controlled substance at d/c from ED?: Yes When asked, does pt state using other controlled substances?: No If prescribed controlled substance>3 days was MAPS reviewed?: Prescribed <3 Days If opioid is for acute pain is fill amount 7 days or less?: Yes If Rx opioid, was Start Talking consent form obtained?: Yes Referrals: Navjot Jones MD [Medical Doctor] - 1-2 days Time of Disposition: 23:19
[2022-08-17] MEDS ORDERED: ACET/COD 300 MG/30 MG STARTER PACK 6 TAB BTL PO STA (20:37)
[2022-08-17] MEDS ORDERED: methylPREDNISolone SOD SUCCI 125 MG/2 ML VIAL IM STA (21:13)
--- NOTE | 2022-08-17 21:45 | CT ---
EXAMINATION TYPE: CT lumbar spine wo con, CT pelvis wo con CT DLP: 854.4 (accession [id number]), 299 (accession [id number]) mGycm, Automated exposure control for do se reduction was used. DATE OF EXAM: 08/17/2022 9:25 PM COMPARISON: None. CLINICAL INDICATION:Male, 52 years old with history of low back pain/fall; PHH, Fall low back pain (a ccession [id number]), Fall left side hip and leg pain (accession [id number]) TECHNIQUE: Multiple axial images were obtained from the midportion of T11 through the sacroiliac eleanor nts. Soft tissue and bone windows in coronal and sagittal planes were obtained and reviewed. 3-D ref ormats of the bones were created on a separate workstation and submitted for review. Axial images of were obtained of the pelvis with sagittal and coronal reformats. Contrast used: none. Oral contrast used: none. FINDINGS: Alignment: There are 5 lumbar type vertebral bodies within normal alignment. Bone: Acute fracture of the left transverse process of L2. Minimal displacement. Degeneration change s of the sacroiliac joints most pronounced in left foot bridging osteophyte. Additional hairline frac tures the is present best appreciated on sagittal imaging involving the left pelvis best appreciated on series 204 image 84 through 91 Discs: T12-L1: No spinal canal or neural foraminal stenosis is identified. L1-L2: No spinal canal or neural foraminal stenosis is identified. L2-L3: Disc bulge and facet joint arthropathy with mild spinal canal and mild bilateral neural forami nal stenosis. L3-L4: Disc bulge and facet joint arthropathy with mild spinal canal and mild bilateral neural forami nal stenosis. L4-L5: Disc bulge with facet joint arthropathy with moderate to severe spinal canal stenosis. L5-S1: No spinal canal stenosis. There is mild bilateral neural foraminal stenosis secondary to facet joint arthropathy. Other: Partially visualized right renal cyst. Pelvis: No evidence of bowel obstruction. The urinary bladder and moderately distended and grossly un remarkable. Atherosclerosis of the arterial vasculature. Coarse consolidation in the prostate gland. Fat filled inguinal changes bilaterally left greater than right. IMPRESSION: 1. Acute fracture of the left transverse process of L2. 2. Hairline fracture through the left pelvis, best appreciated on sagittal imaging which is nondispl aced. This extends into the left superior pubic ramus No evidence of intra-articular extension. 3. L4-L5 disc bulge with at least moderate spinal canal stenosis.
--- NOTE | 2022-08-17 21:47 | XR ---
EXAMINATION TYPE: XR femur LT DATE OF EXAM: 08/17/2022 9:32 PM INDICATION: Patient age:Male; 52 years old; Reason for study: left leg pain; COMPARISON: CT same day TECHNIQUE: The left femur was examined in frontal and lateral projections. FINDINGS: No evidence of acute osseous pathology, joint dislocation, or soft tissue swelling. CT santino ging demonstrated a fracture through the left pelvis which is not definitively seen on this radiograp h. A fabella is noted posterior to the knee. IMPRESSION: 1. No evidence of fracture of the left femur. 2. CT imaging from the same day demonstrated hairline fracture to the left pelvic bone which is nond isplaced as well as a left L2 transverse process fracture.
--- NOTE | 2022-08-17 21:49 | XR ---
EXAMINATION TYPE: XR tibia fibula LT DATE OF EXAM: 08/17/2022 9:32 PM INDICATION: Patient age:Male; 52 years old; Reason for study: lef leg pain/injury; COMPARISON: Femur radiograph same day TECHNIQUE: The left tibia/fibula was examined in AP and lateral projections. FINDINGS: No evidence of any acute osseous pathology, joint dislocation, or soft tissue swelling is n oted. Fabella is present. There is osteophyte formation of the patella and tibial plateau. No evidenc e of fracture of the tibia or fibula. Osseous structures of the foot appear intact. IMPRESSION: 1. No evidence of acute fracture. 2. Mild left knee osteoarthrosis.
[2022-08-17 23:59] VITALS: BP 130/75; PULSE 88; RESP 18
== END 2022-08-17 23:45 | disposition home or self-care (01) ==
LOC: EC 18:09
DX: S32.9XXA Fracture of unspecified parts of lumbosacral spine and pelvis, initial encounter for closed fracture (principal); S32.028A Other fracture of second lumbar vertebra, initial encounter for closed fracture; I25.10 Atherosclerotic heart disease of native coronary artery without angina pectoris; I25.2 Old myocardial infarction; I10 Essential (primary) hypertension; F17.200 Nicotine dependence, unspecified, uncomplicated; Z88.8 Allergy status to other drugs, medicaments and biological substances; Z79.82 Long term (current) use of aspirin; Z79.899 Other long term (current) drug therapy; W10.9XXA Fall (on) (from) unspecified stairs and steps, initial encounter; Y92.89 Other specified places as the place of occurrence of the external cause
CPT/HCPCS: 73502; 73552; 73590; 72192; 72131; 99284; 96372; J2270; J2360; J1885